=== PATIENT | male | born 2000 | race Caucasian/White ===

== ENCOUNTER 2022-01-02 10:49 | Emergency (ER) | payer OTHER ==
[~2022-01-02] VITALS: Ht 190.5 cm; Wt 87.5 kg
--- NOTE | 2022-01-02 11:10 | NUR ---
PT IS IN ROOM #4B. DR SEN EVALUATED THE PT.
[2022-01-02] MEDS ORDERED: DEXAMETHASONE SOD PHOSPHATE 4 MG INJ IV ONE (12:00)
[2022-01-02] MEDS ORDERED: IV NORMAL SALINE 1000 ML BAG IV ONE (12:00)
[2022-01-02] MEDS ORDERED: KETOROLAC TROMETHAMINE 15 MG INJ IVP ONE (12:00)
[2022-01-02] MEDS ORDERED: CLINDAMYCIN PHOSPHATE IV 600 MG in IV DEXTROSE 5% 100 ML IV ONE (12:00)
[2022-01-02] MEDS ORDERED: CLINDAMYCIN 600 MG PIGGYBACK**ER OMNI IV ONE (12:12)
[2022-01-02] MEDS ORDERED: DEXAMETHASONE SOD PHOSPHATE 10 MG INJ ONE (12:12)
[2022-01-02] MEDS ORDERED: KETOROLAC TROMETHAMINE 15 MG INJ ONE (12:13)
[2022-01-02 12:19] LABS: HEMATOCRIT 45.7 % (36.7-47.1); MEAN CORPUSCULAR HEMOGLOBIN 30.7 uug (23.8-33.4); MEAN CORPUSCULAR VOLUME 87.3 fL (73.0-96.2); PLATELET COUNT (AUTO) 291 K/uL (152-348)
[2022-01-02 12:21] LABS: POTASSIUM 4.2 mmol/L (3.5-5.1)
[2022-01-02 12:27] LABS: BILIRUBIN,DIRECT 0.2 mg/dL (0.0-0.2); BILIRUBIN,TOTAL 0.8 mg/dL (0.2-1.0); TOTAL PROTEIN, SERUM 8.4 g/dL (6.4-8.2)
[2022-01-02] MEDS ORDERED: CLIN300C3 PO (13:34)
[2022-01-02] MEDS ORDERED: HYDR-3972 PO ×2 (13:34→14:32)
--- NOTE | 2022-01-02 14:15 | NUR ---
PT WAS D/C'd TO HOME. D/C INSTRUCTIONS GIVEN TO THE PT BY DR SEN.
[2022-01-02 14:18] VITALS: BP 131/74
== END 2022-01-02 14:19 | disposition home or self-care (01) ==
LOC: ER 10:54
DX: J03.80 Acute tonsillitis due to other specified organisms (principal); I88.9 Nonspecific lymphadenitis, unspecified; Z20.822 Contact with and (suspected) exposure to COVID-19
CPT/HCPCS: 36415; 70486; 80048; 80076; 85025; 86403; 87400; 87426; 96365; 96375; 99284; J1100; J1885; J3490; J7040